=== PATIENT | female | born 1945 | race African-American/Black ===

== ENCOUNTER 2016-06-01 10:05 | Emergency (ER) | payer OTHER ==
[~2016-06-01] VITALS: Ht 162.6 cm; Wt 71.0 kg
[2016-06-01 10:30] VITALS: BP 133/71
== END 2016-06-01 13:15 | disposition home or self-care (01) ==
LOC: EDBD 10:05 → ER 13:07
DX: R05 Cough (principal); E78.00 Pure hypercholesterolemia, unspecified; I10 Essential (primary) hypertension; K50.90 Crohn's disease, unspecified, without complications; E05.90 Thyrotoxicosis, unspecified without thyrotoxic crisis or storm; Z90.710 Acquired absence of both cervix and uterus; Z98.890 Other specified postprocedural states
CPT/HCPCS: 71010; 99283